=== PATIENT | male | born 1960 | race Caucasian/White ===

== ENCOUNTER → 2016-06-12 | Outpatient (CLI) | payer OTHER ==
--- NOTE | 2016-06-15 12:47 | HOLTER ---
[facility] [place] Interpretive Statements No Diary returned. Forty eight holter done for palpitations. No activity or symptom diary was kept but recorded diary events were associated with PVCs. There were [id number] beats recorded with [id number] normal beats. There was some baseline artifact and some miss labeled beats with VPCs noted as PACs. The average heart rate was 65 with minimum rate of 43 and fastest sinus rate of 121. There were 92 PACs with 10 pairs and three 4 beat runs at rates of 82. There were 8282 multifocal PVCs at 176/hr with 66 couplets, occasional bigeminey and trigeminey with one 3 beat run of VT at rate of 154. There was frequent R on T beats. No significant pauses or atrial fibrillation was seen. There were frequent 1mm ST depression episodes with sinus rhythm increasing to 2mm ST depression with sinus tachycardia at rate of 120. IMP: Abnormal holter study with frequent multifocal VPCs with couplets, bigeminey and trigeminey and frequent R on T events. No sustained VT noted. Rare PACs with no sustained tachycardia or atrial fibrillation. Resting 1mm ST depression with sinus rhythm increasing to 2mm with tachycardia compatible with myocardial ischemia. No activity or symptom diary kept but recorded diary events associated with VPCs. Electronically Signed On 06-17-16 13:13:45 [facility] by James Coles [id number]
== END ==
LOC: RT 14:24
PROVIDERS: ATTEND Internal Medicine Cardiovascular Disease
DX: R00.2 Palpitations (principal)
CPT/HCPCS: 93225; 93226; 93227

== ENCOUNTER → 2016-08-23 | Outpatient (CLI) | payer BC ==
[2016-08-23 14:58] LABS: CREATININE, URINE 49.6 MG/DL (15-500)
== END ==
LOC: MOB LAB 12:21
PROVIDERS: ATTEND Family Medicine
DX: E11.9 Type 2 diabetes mellitus without complications (principal)
CPT/HCPCS: 82043

== ENCOUNTER 2016-10-08 09:23 | Day surgery (SDC) | payer BC ==
[~2016-10-08 09:23] MED LIST: LIDOCAINE W/ SODIUM BICARB 0.5 ML SYR ONE; Lactated Ringers 1,000 ML PRIMARY IV ONE
--- NOTE | 2016-10-08 10:57 | GEN.OPNOTE ---
EGD / Colonoscopy Report Surgery Date: 10/08/16 Preoperative Diagnosis: GERD. Dysphagia. Lower abdominal pain. Change in bowel habits. Constipation. Overflow diarrhea. Personal history of colon polyps. Postoperative Diagnosis: Same. Small polyp at 20 cm. Procedure: #1 esophagogastroduodenoscopy with biopsy. #2 complete colonoscopy with multiple random biopsies with biopsy and destruction of a small polyp at 20 cm. Surgeon: Art Preciado MD Anesthesia Provider: Hallie Gandhi CRNA Anesthesia Type: MAC Indications: See preoperative diagnosis. See history and physical. EGD Findings: Esophagus: [Normal. No stricture.] GE Junction : [No obvious inflammation. No stricture.] Fundus : [Normal] Body : [Normal] Prepyloric : [Normal] Small Intestine : [Normal] A lubricated flexible upper endoscope was inserted and passed through the esophagus and stomach into the duodenum. The duodenum and duodenal bulb were unremarkable. The pyloric channel was patent. The entire gastric mucosa was unremarkable. The patient is on a proton pump inhibitor. I chose to do random antral biopsies. Hemostasis was assured. Air was aspirated. The scope was withdrawn into the distal esophagus. Biopsies were taken at and above the Z line. Hemostasis was assured. The scope was withdrawn through the remainder of a normal-appearing esophagus and brought through the hypopharynx under suction completing the procedure. Colonoscopy Findings: Prep : [Good.] Cecum : [Normal.] Ascending : [Normal] Transverse : [Normal] Sigmoid : [Normal with a small polyp at 20 cm biopsied and destroyed] Rectum : [Normal] Digital Rectal Exam : [Prostate of normal size and consistency] A lubricated flexible colonoscope was inserted and passed to the blind end of the cecum. The blind end of the cecum and ileocecal valve were clearly seen. Air was aspirated as the scope was withdrawn. There is a small polyp found at 20 cm which was biopsied and destroyed. Otherwise the entire colonoscopy was normal without polyp, tumor, neoplastic mass, infectious or inflammatory process. Random biopsies were taken from the right colon, transverse colon, sigmoid colon , and rectum. Hemostasis was assured. The scope was withdrawn completing the procedure. Patient tolerated the entire procedure well without complication. He was taken to outpatient surgery in stable condition. Follow-up will be with my office on an as-needed basis. We will call the biopsy results and plan therapy and follow-up accordingly. We will consider CT scan of his abdomen and pelvis for his lower abdominal pain pending the biopsy results.
[2016-10-08 11:09] VITALS: RESP 14
[2016-10-08 11:25] VITALS: TEMP 98
== END 2016-10-08 11:22 | disposition home or self-care (01) ==
LOC: SDSC 09:23
PROVIDERS: ATTEND Surgery
DX: R19.4 Change in bowel habit (principal); R19.7 Diarrhea, unspecified; K59.00 Constipation, unspecified; K21.9 Gastro-esophageal reflux disease without esophagitis; R13.14 Dysphagia, pharyngoesophageal phase; R10.30 Lower abdominal pain, unspecified
CPT/HCPCS: 43239; 45380; J2704; J7120

== ENCOUNTER → 2016-11-14 | Outpatient (CLI) | payer BC ==
[2016-11-14 11:31] LABS: HEMOGLOBIN A1C 8.41 % (4.2-6.0)
== END ==
LOC: LAB 10:51
PROVIDERS: ATTEND Family Medicine
DX: E11.9 Type 2 diabetes mellitus without complications (principal)
CPT/HCPCS: 36415; 83036